=== PATIENT | female | born 1965 | race Caucasian/White ===

== ENCOUNTER → 2020-09-13 | Outpatient (CLI) | payer OTHER ==
[~2020-09-13] MED LIST: CALC-126 PO; CHOL10003 PO; magnesium PO
== END | disposition home or self-care (01) ==
LOC: STAR 10:32
PROVIDERS: ATTEND Obstetrics & Gynecology
DX: Z20.822 Contact with and (suspected) exposure to COVID-19 (principal); N95.0 Postmenopausal bleeding
CPT/HCPCS: U0005; U0003

== ENCOUNTER 2020-09-20 09:38 | Day surgery (SDC) | payer OTHER ==
[~2020-09-20] VITALS: Ht 154.9 cm; Wt 65.5 kg
[2020-09-20] MEDS ORDERED: CHLORHEXIDINE 15 ML UDC ONE (10:07)
[2020-09-20] MEDS ORDERED: LACTATED RINGERS 1,000 ML IV SCH (10:30)
[2020-09-20] MEDS ORDERED: CHLORHEXIDINE 15 ML UDC PO ONE (10:30)
[2020-09-20] MEDS ORDERED: LIDOCAINE-MPF 1%, 2ML INFIL ONE (10:30)
[2020-09-20] MEDS ORDERED: EPINEPHRINE 1 MG/ML, 1ML ONE (11:35)
[2020-09-20] MEDS ORDERED: BUPIVACAINE/PF 0.25% ONE (11:35)
[2020-09-20] MEDS ORDERED: SILVER NITRATE STICK TP ONE (11:35)
[2020-09-20] MEDS ORDERED: MIDAZOLAM 1 MG/ML, 2ML ONE (11:59)
[2020-09-20] MEDS ORDERED: FENTANYL PF 100 MCG/2ML ONE (11:59)
[2020-09-20] MEDS ORDERED: PROPOFOL 100 ML ONE (12:05)
[2020-09-20] MEDS ORDERED: PROPOFOL 10 MG/ML, 20ML ONE (12:17)
[2020-09-20] MEDS ORDERED: ONDANSETRON 2MG/ML, 2ML ONE (12:17)
[2020-09-20] MEDS ORDERED: DEXAMETHASONE 4 MG/ML, 1ML ONE (12:17)
[2020-09-20] MEDS ORDERED: CEFAZOLIN 1,000 MG ONE (12:17)
[2020-09-20] MEDS ORDERED: OXYcodone 5 MG/5 ML ORAL.SOL UDC PO PRN (12:30)
[2020-09-20] MEDS ORDERED: LORazepam 2 MG/ML, 1ML IVPush PRN (12:30)
[2020-09-20] MEDS ORDERED: HYDROmorphone 1 MG/ML, 1ML INJ IVPush PRN (12:30)
[2020-09-20] MEDS ORDERED: PROMETHAZINE 25 MG SUPP PR PRN (12:30)
[2020-09-20] MEDS ORDERED: PROMETHAZINE 25 MG/ML, 1ML IVPush PRN (12:30)
[2020-09-20] MEDS ORDERED: FENTANYL PF 100 MCG/2ML IV PRN (12:30)
[2020-09-20] MEDS ORDERED: ONDANSETRON 2MG/ML, 2ML IVPush PRN (12:30)
[2020-09-20] MEDS ORDERED: ACETAMINOPHEN 325 MG TABLET PO PRN (12:30)
[2020-09-20] MEDS ORDERED: METHOCARBAMOL 1,000 MG in DEXTROSE 5% 100 ML IV PRN (12:30)
== END 2020-09-20 14:20 | disposition home or self-care (01) ==
LOC: OUT 09:38
PROVIDERS: ATTEND Obstetrics & Gynecology
DX: N95.0 Postmenopausal bleeding (principal); N84.0 Polyp of corpus uteri; Z88.0 Allergy status to penicillin; Z98.890 Other specified postprocedural states; Z72.89 Other problems related to lifestyle; Z79.899 Other long term (current) drug therapy
CPT/HCPCS: 58558; 88305; J0690; J1100; J2250; J2405; J2704; J3010; J7120; J0171